=== PATIENT | female | born 2000 | race American Indian/Alaskan Native ===

== ENCOUNTER 2020-08-02 12:37 | Emergency (ER) | payer OTHER ==
--- NOTE | 2020-08-02 14:54 | Emergency Department Report ---
ED Female HPI - General Chief complaint: Abdominal Pain Stated complaint: VAGINAL PAIN/STOMACH PAIN Time Seen by Provider: 08/02/20 14:51 Source: patient Mode of arrival: Ambulatory Limitations: No Limitations - History of Present Illness Initial comments: Patient is a 20-year-old female presents emergency room complaints of suprapubic abdominal discomfort that began 3 days ago. She states that she has associated dysuria and urinary frequency. She states that she also has yellow vaginal discharge. She states that she is sexually active without protection and is concerned for STDs. Patient states that she was having right ear pressure and so she began taking some leftover amoxicillin tablets that her grandmother had but did not have anyone check the ear. She denies any fever, hearing changes. No past medical history. No allergies to medications. Last menstrual cycle 07/02/2020. - Related Data Previous Rx's Medication Instructions Recorded Last Taken Type Doxycycline Hyclate [Doxycycline 100 mg PO BID 7 Days #14 tab 08/02/20 Unknown Rx Hyclate TAB] Fluconazole (Nf) [Diflucan TAB] 150 mg PO ONCE #2 tablet 08/02/20 Unknown Rx metroNIDAZOLE [Flagyl] 500 mg PO BID 7 Days #14 tab 08/02/20 Unknown Rx Allergies Allergy/AdvReac Type Severity Reaction Status Date / Time No Known Allergies Allergy Unverified 08/02/20 13:00 ED Review of Systems ROS: Stated complaint: VAGINAL PAIN/STOMACH PAIN Other details as noted in HPI Comment: All other systems reviewed and negative ED Past Medical Hx - Past Medical History Previous Medical History?: No - Surgical History Past Surgical History?: No - Social History Smoking Status: Current Some Day Smoker Substance Use Type: Alcohol, Marijuana - Medications Home Medications: Home Medications Medication Instructions Recorded Confirmed Last Taken Type Doxycycline Hyclate [Doxycycline 100 mg PO BID 7 Days #14 tab 08/02/20 Unknown Rx Hyclate TAB] Fluconazole (Nf) [Diflucan TAB] 150 mg PO ONCE #2 tablet 08/02/20 Unknown Rx metroNIDAZOLE [Flagyl] 500 mg PO BID 7 Days #14 tab 08/02/20 Unknown Rx ED Physical Exam - General Limitations: No Limitations General appearance: alert, in no apparent distress - Head Head exam: Present: atraumatic, normocephalic - Eye Eye exam: Present: normal appearance - ENT ENT exam: Present: normal orophraynx, mucous membranes moist, TM's normal bilat erally, normal external ear exam - Respiratory Respiratory exam: Present: normal lung sounds bilaterally. Absent: respiratory distress, wheezes, rales, rhonchi, stridor, chest wall tenderness, accessory muscle use, decreased breath sounds, prolonged expiratory - Cardiovascular Cardiovascular Exam: Present: normal rhythm, tachycardia, normal heart sounds. Absent: systolic murmur, diastolic murmur, rubs, gallop - GI/Abdominal GI/Abdominal exam: Present: soft, normal bowel sounds. Absent: distended, tenderness, guarding, rebound, rigid - Neurological Exam Neurological exam: Present: alert, oriented X3 - Psychiatric Psychiatric exam: Present: normal affect, normal mood - Skin Skin exam: Present: warm, dry, intact ED Course Vital Signs 08/02/20 08/02/20 08/02/20 13:03 16:48 16:53 Temperature 97.7 F 98.6 F Pulse Rate 124 H 94 H Respiratory 20 18 18 Rate Blood Pressure 157/85 Blood Pressure 156/92 [Right] O2 Sat by Pulse 96 99 Oximetry ED Medical Decision Making - Lab Data Vital Signs 08/02/20 08/02/20 08/02/20 13:03 16:48 16:53 Temperature 97.7 F 98.6 F Pulse Rate 124 H 94 H Respiratory 20 18 18 Rate Blood Pressure 157/85 Blood Pressure 156/92 [Right] O2 Sat by Pulse 96 99 Oximetry Lab Results 08/02/20 Range/Units 14:52 Urine Color Yellow (Yellow) Urine Turbidity Clear (Clear) Urine pH 6.0 (5.0-7.0) Ur Specific [place] 1.014 (1.003-1.030) Urine Protein <15 mg/dl (Negative) mg/dL Urine Glucose (UA) Neg (Negative) mg/dL Urine Ketones Neg (Negative) mg/dL Urine Blood Neg (Negative) Urine Nitrite Neg (Negative) Urine Bilirubin Neg (Negative) Urine Urobilinogen < 2.0 (<2.0) mg/dL Ur Leukocyte Esterase Neg (Negative) Urine WBC (Auto) 1.0 (0.0-6.0) /HPF Urine RBC (Auto) 1.0 (0.0-6.0) /HPF U Epithel Cells (Auto) 1.0 (0-13.0) /HPF Urine Bacteria (Auto) 1+ (Negative) /HPF Urine Mucus Few /HPF Urine HCG, Qual Negative (Negative) - Medical Decision Making Patient is a 20-year-old female presents emergency room complaints of suprapubic abdominal discomfort that began 3 days ago. She states that she has associated dysuria and urinary frequency. She states that she also has yellow vaginal discharge. She states that she is sexually active without protection and is concerned for STDs. Patient states that she was having right ear pressure and so she began taking some leftover amoxicillin tablets that her grandmother had but did not have anyone check the ear. She denies any fever, hearing changes. No past medical history. No allergies to medications. Last menstrual cycle 07/02/2020. Initial vitals with elevated heart rate which improved upon repeat. No abdominal tenderness on exam, no guarding, no rebound, no rigidity, normal bowel sounds, no peritoneal signs. UA is within normal limits. Urine is negative. Patient given 500 mg IM ceftriaxone to cover for gonorrhea. Patient given prescription for fluconazole, Flagyl, doxycycline. Advised patient Please take medication as prescribed. Please have any partner tested and treated as well. Avoid sexual intercourse. Follow-up with the health department or clinic to have a full STD panel. Return to emergency room for any new or worsening symptoms. Please do not take leftover antibiotics unless you have been confirmed to have an infection as this causes antibiotic resistance, you have no ear infection on your exam so therefore do not need to be taking the amoxicillin. - Differential Diagnosis UTI, STD, vaginitis, BV, yeast Critical care attestation.: If time is entered above; I have spent that time in minutes in the direct care of this critically ill patient, excluding procedure time. ED Disposition Clinical Impression: Concern about STD in female without diagnosis, Suprapubic abdominal pain, Dysuria Vaginitis Qualifiers: Chronicity: acute Qualified Code(s): N76.0 - Acute vaginitis Disposition: DC-01 TO HOME OR SELFCARE Is pt being admited?: No Does the pt Need Aspirin: No Condition: Stable Instructions: Safe Sex, Vaginitis, Abdominal Pain (ED) Additional Instructions: Please take medication as prescribed. Please have any partner tested and treated as well. Avoid sexual intercourse. Follow-up with the health department or clinic to have a full STD panel. Return to emergency room for any new or worsening symptoms. Please do not take leftover antibiotics unless you have been confirmed to have an infection as this causes antibiotic resistance, you have no ear infection on your exam so therefore do not need to be taking the amoxicillin. Prescriptions: Fluconazole (Nf) [Diflucan TAB] 150 mg PO ONCE #2 tablet Doxycycline Hyclate [Doxycycline Hyclate TAB] 100 mg PO BID 7 Days #14 tab metroNIDAZOLE [Flagyl] 500 mg PO BID 7 Days #14 tab Referrals: PRIMARY CARE, [Primary Care Provider] - 2-[address] [facility] [Provider Group] - 2-3 Days [facility] [Outside] - 2-3 Days Time of Disposition: 15:44 Print Language: PANAMANIAN
[2020-08-02 15:12] LABS: Bacteria,Urine 1+ /HPF (Negative); Bilirubin,Urine NEG (Negative); Blood,Urine NEG (Negative); Color,Urine Yellow (Yellow); Mucus,Urine FEW /HPF; Protein,Urine <15 mg/dL mg/dL (Negative); Urobilinogen,Urine < 2.0 mg/dL (<2.0)
[2020-08-02 15:41] LABS: HCG Qualitative,Urine Negative (Negative)
[2020-08-02] MEDS ORDERED: LIDOCAINE-MPF (1%) 10 MG/1 ML VIAL 5 ML INFILTRATI ONE (15:43)
[2020-08-02 16:51] VITALS: BP 156/92
== END 2020-08-02 17:13 | disposition home or self-care (01) ==
LOC: ED 12:37
DX: N76.0 Acute vaginitis (principal); Z20.2 Contact with and (suspected) exposure to infections with a predominantly sexual mode of transmission; F17.200 Nicotine dependence, unspecified, uncomplicated; F12.10 Cannabis abuse, uncomplicated; Z79.899 Other long term (current) drug therapy
CPT/HCPCS: 81001; 81025; 96372; 99283; J0696

== ENCOUNTER 2020-08-21 10:20 | Emergency (ER) | payer SELFPAY ==
--- NOTE | 2020-08-21 10:30 | Emergency Department Report ---
Stated Complaint: DIZZY/HOT AND COLD/NO APPETITE - HPI History of Present Illness: Complains of diffuse itching, hot and cold spells, fever, rash for about 1 week after being placed on Flagyl and doxycycline. - Exam Vital Signs: Tachycardic to the 130s, no distress MSE screening note: Focused history and physical exam performed. Due to findings the following was ordered: Labs ED Disposition for MSE Condition: Stable
[2020-08-21 11:00] LABS: Bacteria,Urine 2+ /HPF (Negative); Bilirubin,Urine NEG (Negative); Blood,Urine SM (Negative); Color,Urine Yellow (Yellow); Mucus,Urine FEW /HPF; Protein,Urine <15 mg/dL mg/dL (Negative); Urobilinogen,Urine < 2.0 mg/dL (<2.0)
[2020-08-21 11:17] LABS: Basophils % (Auto) 0.2 % (0.0-1.8); Eosinophils # (Auto) 0.1 K/mm3 (0.0-0.4); Eosinophils % (Auto) 0.5 % (0.0-4.3); Hemoglobin 15.4 gm/dl (10.1-14.3); Lymphocytes # (Auto) 1.9 K/mm3 (1.2-5.4); Lymphocytes % (Auto) 16.9 % (13.4-35.0); Mean Corpuscular HGB Conc 34 % (30-34); Mean Corpuscular Volume 86 fl (79-97); Monocytes # (Auto) 0.7 K/mm3 (0.0-0.8); Platelet Count 305 K/mm3 (140-440); Red Blood Count 5.22 M/mm3 (3.65-5.03); Red Cell Distribution Width 14.2 % (13.2-15.2)
[2020-08-21 11:36] LABS: Alanine Aminotransferase 36 units/L (7-56); Albumin 4.5 g/dL (3.9-5); Blood Urea Nitrogen 6 mg/dL (7-17); Calcium 9.4 mg/dL (8.4-10.2); Hemolysis Index 7
[2020-08-21 11:38] LABS: BUN/Creatinine Ratio 9
--- NOTE | 2020-08-21 12:22 | Emergency Department Report ---
ED General Adult HPI - General Chief complaint: Headache Stated complaint: DIZZY/HOT AND COLD/NO APPETITE Time Seen by Provider: 08/21/20 10:30 Source: patient Mode of arrival: Ambulatory Limitations: No Limitations - History of Present Illness Initial comments: Patient is 20 years old female with no significant past medical history. Patient initially presented to the ER complaining of generalized itching that started after she started taking Flagyl and doxycycline for bacterial vaginosis. Patient informed the nurse that she has been depressed for the last few weeks. When I talked to the patient she stated that since June when her sister maureen lled her fat she became very depressed and she started feeling things crawling on her skin. I discussed with patient mother through phone and patient mother stated that she has not been acting well for the last few days. She stated that she is sleeping less and not eating well. She stated that she had a fight with her siblings. Mother also told me that she fell and hit her head on the concrete probably 3 weeks ago. Patient currently denying any suicidal ideation. She also denied any visual or auditory hallucination. Patient and family requesting mental health evaluation. - Related Data Previous Rx's Medication Instructions Recorded Last Taken Type Doxycycline Hyclate [Doxycycline 100 mg PO BID 7 Days #14 tab 08/02/20 Unknown Rx Hyclate TAB] Fluconazole (Nf) [Diflucan TAB] 150 mg PO ONCE #2 tablet 08/02/20 Unknown Rx metroNIDAZOLE [Flagyl] 500 mg PO BID 7 Days #14 tab 08/02/20 Unknown Rx Allergies Allergy/AdvReac Type Severity Reaction Status Date / Time No Known Allergies Allergy Verified 08/21/20 10:21 ED Review of Systems ROS: Stated complaint: DIZZY/HOT AND COLD/NO APPETITE Other details as noted in HPI Comment: All other systems reviewed and negative Constitutional: denies: chills, fever Respiratory: denies: cough, shortness of breath Cardiovascular: denies: chest pain, palpitations Gastrointestinal: denies: abdominal pain, nausea, vomiting Musculoskeletal: denies: back pain Neurological: headache. denies: weakness, numbness, paresthesias, confusion, abnormal gait Psychiatric: depression. denies: auditory hallucinations, visual hallucinations, homicidal thoughts, suicidal thoughts ED Past Medical Hx - Past Medical History Previous Medical History?: No - Surgical History Past Surgical History?: No - Social History Smoking Status: Former Smoker - Medications Home Medications: Home Medications Medication Instructions Recorded Confirmed Last Taken Type Doxycycline Hyclate [Doxycycline 100 mg PO BID 7 Days #14 tab 08/02/20 Unknown Rx Hyclate TAB] Fluconazole (Nf) [Diflucan TAB] 150 mg PO ONCE #2 tablet 08/02/20 Unknown Rx metroNIDAZOLE [Flagyl] 500 mg PO BID 7 Days #14 tab 08/02/20 Unknown Rx ED Physical Exam - General Limitations: No Limitations General appearance: alert, in no apparent distress - Head Head exam: Present: atraumatic, normocephalic, normal inspection - Eye Eye exam: Present: normal appearance, PERRL - ENT ENT exam: Present: normal exam, normal orophraynx, mucous membranes moist - Neck Neck exam: Present: normal inspection, full ROM. Absent: tenderness, meningismus - Respiratory Respiratory exam: Present: normal lung sounds bilaterally - Cardiovascular Cardiovascular Exam: Present: regular rate, normal rhythm, normal heart sounds - GI/Abdominal GI/Abdominal exam: Present: soft, normal bowel sounds. Absent: distended, tenderness, guarding, rebound, rigid, mass, bruit, pulsatile mass, hernia - Extremities Exam Extremities exam: Present: normal inspection, full ROM, normal capillary refill. Absent: pedal edema, calf tenderness - Back Exam Back exam: Present: normal inspection, full ROM. Absent: CVA tenderness (R), CVA tenderness (L) - Neurological Exam Neurological exam: Present: alert, oriented X3, CN II-XII intact - Psychiatric Psychiatric exam: Present: depressed. Absent: agitated, anxious, flat affect, manic, homicidal ideation, suicidal ideation - Skin Skin exam: Present: warm, intact, normal color ED Course Vital Signs 08/21/20 15:24 Pulse Rate 94 H Respiratory 17 Rate Blood Pressure 126/83 [Left] O2 Sat by Pulse 98 Oximetry ED Medical Decision Making - Lab Data Result diagrams: 08/21/20 10:37 08/21/20 10:37 - Radiology Data Radiology results: report reviewed - Medical Decision Making Patient is 20 years old female with no significant past medical history. Patient initially presented to the ER complaining of generalized itching that started after she started taking Flagyl and doxycycline for bacterial vaginosis. Patient informed the nurse that she has been depressed for the last few weeks. When I talked to the patient she stated that since June when her sister called her fat she became very depressed and she started feeling things crawling on her skin. I discussed with patient mother through phone and patient mother stated that she has not been acting well for the last few days. She stated that she is sleeping less and not eating well. She stated that she had a fight with her siblings. Mother also told me that she fell and hit her head on the concrete probably 3 weeks ago. Patient currently denying any suicidal ideation. She also denied any visual or auditory hallucination. Patient and family requesting mental health evaluation. Labs reviewed and is unremarkable. CT brain is negative for acute finding. Patient has been evaluated by our psychiatric team and advised patient does not meet inpatient criteria patient can follow-up as an outpatient. Patient given prescription for Benadryl and advised to follow-up with her primary doctor in the next 2 to 3 days and to return to the ER if she develop any new symptoms. Critical care attestation.: If time is entered above; I have spent that time in minutes in the direct care of this critically ill patient, excluding procedure time. ED Disposition Clinical Impression: Depression, Itching Disposition: DC-01 TO HOME OR SELFCARE Is pt being admited?: No Condition: Stable Instructions: Major Depressive Disorder, Adult, Pruritus Referrals: PRIMARY CARE, [Primary Care Provider] - 3-5 Days
--- NOTE | 2020-08-21 12:57 | Cat Scan Report ---
NONENHANCED CT SCAN OF THE HEAD: INDICATION / CLINICAL INFORMATION: 20 years Female; HEAD INJURY. TECHNIQUE: Routine CT head without contrast. All CT scans at this location are performed using CT dos e reduction for ALARA by means of automated exposure control. COMPARISON: None. FINDINGS: BRAIN / INTRACRANIAL CONTENTS: No intracranial sequela from the trauma; no scalp hematoma; no air-flu id level in the visualized portions of the paranasal sinuses No acute hemorrhage, mass effect, midline shift, hydrocephalus, or acute, large territorial infarct. No chronic infarct or focal atrophy. Normal brain volume and ventricular/sulcal size for age. No sig nificant white matter abnormality. CRANIOCERVICAL JUNCTION: Mild tonsillar ectopia ORBITS: No significant abnormality of visualized orbits. SINUSES / MASTOIDS: No significant abnormality of the visualized paranasal sinuses or mastoid air kristi ls. ADDITIONAL FINDINGS: None. IMPRESSION: No intracranial sequela from the trauma No acute focal parenchymal lesion Signer Name: Dawson Franco MD Signed: 08/21/2020 12:52 PM Workstation Name: [id number]
[2020-08-21 13:11] LABS: Amphetamine Screen,Urine Negative; Benzodiazepines Screen,Urine Negative; Cannabinoid Screen,Urine Negative; Cocaine Screen,Urine Negative; Methadone Screen,Urine Negative; Opiate Screen,Urine Negative
[2020-08-21 15:25] VITALS: BP 126/83
== END 2020-08-21 16:56 | disposition home or self-care (01) ==
LOC: ED 10:20
DX: F32.9 Major depressive disorder, single episode, unspecified (principal); L29.9 Pruritus, unspecified; Z79.899 Other long term (current) drug therapy; Z87.891 Personal history of nicotine dependence
CPT/HCPCS: 36415; 70450; 80053; 80307; 80320; 81001; 84703; 85025; G0480

== ENCOUNTER 2020-11-19 14:14 | Emergency (ER) | payer SELFPAY ==
[2020-11-19 14:33] VITALS: BP 151/83
[2020-11-19 20:53] LABS: Bilirubin,Urine NEG (Negative); Blood,Urine NEG (Negative); Color,Urine Yellow (Yellow); HCG Qualitative,Urine Negative (Negative); Mucus,Urine 3+ /HPF
== END 2020-11-19 23:08 | disposition home or self-care (01) ==
LOC: ED 14:14
DX: N89.8 Other specified noninflammatory disorders of vagina (principal); Z79.899 Other long term (current) drug therapy
CPT/HCPCS: 81001; 81025; 99283

== ENCOUNTER 2021-11-05 13:17 | Emergency (ER) | payer SELFPAY ==
[2021-11-05 14:52] LABS: Bacteria,Urine 4+ /HPF (Negative); Bilirubin,Urine NEG (Negative); Blood,Urine SM (Negative); Color,Urine Yellow (Yellow); Mucus,Urine 2+ /HPF; Urobilinogen,Urine < 2.0 mg/dL (<2.0)
[2021-11-05] MEDS ORDERED: PENICILLIN G BENZATHINE 1.2 MILLION UNIT/2 ML INJ IM ONE (16:41)
--- NOTE | 2021-11-05 17:35 | Emergency Department Report ---
ED Female HPI - General Chief complaint: Abdominal Pain Stated complaint: LOWER STOMACH PAIN Time Seen by Provider: 11/05/21 16:19 Source: patient Mode of arrival: Ambulatory Limitations: No Limitations - History of Present Illness Initial comments: 21 yo black female with pmh of PCOS and endometriosis presents to ed for evaluation after having a positive syphilis test. She states that she was being tested to give plasma and was notified of positive results. She denies any symptoms. MD Complaint: other (positive syphilis test ) -: Sudden Severity scale (0 -10): 0 Are you Now?: No Last Menstrual Period: 10/29/21 EDC: 08/05/22 Associated Symptoms: denies: vaginal discharge, vaginal bleeding, abdominal pain, nausea/vomiting, fever/chills, headaches, loss of appetite, dysuria, hematuria, shortness of breath, syncope, weakness - Related Data Sexually active: Yes Previous Rx's Medication Instructions Recorded Last Taken Type Doxycycline Hyclate [Doxycycline 100 mg PO BID 7 Days #14 tab 08/02/20 Unknown Rx Hyclate TAB] Fluconazole (Nf) [Diflucan TAB] 150 mg PO ONCE #2 tablet 08/02/20 Unknown Rx metroNIDAZOLE [Flagyl] 500 mg PO BID 7 Days #14 tab 08/02/20 Unknown Rx diphenhydrAMINE [Benadryl CAP] 25 mg PO Q8HR PRN #20 capsule 08/21/20 Unknown Rx Fluconazole [Diflucan TAB] 200 mg PO QDAY #1 tablet 11/19/20 Unknown Rx metroNIDAZOLE [Flagyl] 500 mg PO Q12HR #14 tab 11/19/20 Unknown Rx cephALEXin [Keflex] 500 mg PO Q12HR #14 cap 11/05/21 Unknown Rx Allergies Allergy/AdvReac Type Severity Reaction Status Date / Time No Known Allergies Allergy Verified 08/21/20 10:21 ED Review of Systems ROS: Stated complaint: LOWER STOMACH PAIN Other details as noted in HPI Comment: All other systems reviewed and negative Constitutional: denies: chills, fever ENT: denies: throat pain Respiratory: denies: shortness of breath, SOB with exertion, SOB at rest, stridor, wheezing Cardiovascular: denies: chest pain, palpitations, dyspnea on exertion Gastrointestinal: denies: abdominal pain, nausea, vomiting Genitourinary: denies: urgency, dysuria, frequency, hematuria, discharge Musculoskeletal: denies: back pain, joint swelling, myalgia Skin: denies: rash Neurological: denies: headache, weakness ED Past Medical Hx - Past Medical History Previous Medical History?: Yes Hx Asthma: Yes - Social History Smoking Status: Never Smoker Substance Use Type: Marijuana - Medications Home Medications: Home Medications Medication Instructions Recorded Confirmed Last Taken Type Doxycycline Hyclate [Doxycycline 100 mg PO BID 7 Days #14 tab 08/02/20 Unknown Rx Hyclate TAB] Fluconazole (Nf) [Diflucan TAB] 150 mg PO ONCE #2 tablet 08/02/20 Unknown Rx metroNIDAZOLE [Flagyl] 500 mg PO BID 7 Days #14 tab 08/02/20 Unknown Rx diphenhydrAMINE [Benadryl CAP] 25 mg PO Q8HR PRN #20 capsule 08/21/20 Unknown Rx Fluconazole [Diflucan TAB] 200 mg PO QDAY #1 tablet 11/19/20 Unknown Rx metroNIDAZOLE [Flagyl] 500 mg PO Q12HR #14 tab 11/19/20 Unknown Rx cephALEXin [Keflex] 500 mg PO Q12HR #14 cap 11/05/21 Unknown Rx ED Physical Exam - General Limitations: No Limitations General appearance: alert, in no apparent distress - Head Head exam: Present: atraumatic, normocephalic - Eye Eye exam: Present: normal appearance. Absent: conjunctival injection - Respiratory Respiratory exam: Present: normal lung sounds bilaterally. Absent: respiratory distress, wheezes, rales, rhonchi, stridor, chest wall tenderness - Cardiovascular Cardiovascular Exam: Present: tachycardia, normal heart sounds - GI/Abdominal GI/Abdominal exam: Present: soft, normal bowel sounds. Absent: distended, tenderness, guarding, rebound, rigid - Extremities Exam Extremities exam: Present: normal inspection - Back Exam Back exam: Present: normal inspection. Absent: CVA tenderness (R), CVA tenderness (L), paraspinal tenderness, vertebral tenderness - Neurological Exam Neurological exam: Present: alert, oriented X3, normal gait. Absent: abnormal gait - Psychiatric Psychiatric exam: Present: normal affect, normal mood - Skin Skin exam: Present: warm, dry, intact, normal color ED Course Vital Signs 11/05/21 11/05/21 13:31 18:15 Temperature 98.6 F Pulse Rate 101 H 57 L Respiratory 18 18 Rate Blood Pressure 154/94 Blood Pressure 179/75 [Right] O2 Sat by Pulse 96 100 Oximetry ED Medical Decision Making - Medical Decision Making 21 yo black female with pmh of PCOS and endometriosis presents to ed for evaluation after having a positive syphilis test. She states that she was being tested to give plasma and was notified of positive results. She denies any symptoms. No gross abnormalities noted on exam. UA positive for UTI, and patient has print out of syphilis results. She will be treated with one time dose of Bicillin I-A 2.4 million unitsIM X one and Keflex 5oo mg po BID for the next 7 days to treat UTI. She was advised to take medications as prescribed and follow up with pcp if no improvement or worsening symptoms. She verbalized understanding of and agreement with plan of care. Critical care attestation.: If time is entered above; I have spent that time in minutes in the direct care of this critically ill patient, excluding procedure time. ED Disposition Clinical Impression: Acquired syphilis UTI (urinary tract infection) Qualifiers: Urinary tract infection type: acute cystitis Hematuria presence: with hematuria Qualified Code(s): N30.01 - Acute cystitis with hematuria Disposition: HOME / SELF CARE / HOMELESS Is pt being admited?: No Does the pt Need Aspirin: No Condition: Stable Instructions: Syphilis, Antibiotic Medicine, Adult, [id number], Urinary Tract Infection, Adult, [id number], Syphilis Test, Abdominal Pain (ED) Additional Instructions: Take medications as prescribed. Follow-up with primary care provider for further evaluation and management. Return to the emergency department as needed. Prescriptions: cephALEXin [Keflex] 500 mg PO Q12HR #14 cap Referrals: SUSAN MULLINS MD [Primary Care Provider] - 3-5 Days Time of Disposition: 17:35
[2021-11-05 18:16] VITALS: BP 179/75
== END 2021-11-05 18:05 | disposition home or self-care (01) ==
LOC: ED 13:17
DX: A53.9 Syphilis, unspecified (principal); N39.0 Urinary tract infection, site not specified; J45.909 Unspecified asthma, uncomplicated; F12.90 Cannabis use, unspecified, uncomplicated; Z79.899 Other long term (current) drug therapy
CPT/HCPCS: 81001; 87086; 96372; 99283; J0561